=== PATIENT | male | born 1960 | race Caucasian/White ===

== ENCOUNTER → 2019-09-19 | Day surgery (SDC) | payer BC ==
[~2019-09-19] MED LIST: Lactated Ringers 1,000 ML IV SCH; Propofol 200 MG/20 ML SDV IV ONE
--- NOTE | 2019-09-19 10:27 | OR ---
DATE OF OPERATION: 09/19/2019 PREOPERATIVE DIAGNOSIS: FOLLOWUP POLYPS. POSTOPERATIVE DIAGNOSIS: FOLLOWUP POLYPS. SURGEON: Yared Beckett MD PROCEDURE: DIAGNOSTIC COLONOSCOPY WITH FORCEPS POLYP REMOVAL X1. ANESTHESIA: MAC. COMPLICATIONS: None. SPECIMEN: Small sessile polyp, proximal sigmoid colon. FINDINGS: 1. Full-length colonoscopy. 2. Sessile polyp 3 mm, proximal sigmoid colon. RECOMMENDATIONS: Followup colonoscopy in 5 years. INDICATIONS: The patient has a prior history of tubular adenoma removal, quite large. He is overdue for a followup scope for recheck. DESCRIPTION OF PROCEDURE: The patient was prepped and draped, placed in the left lateral decubitus position. A lubricated Olympus colonoscope was inserted and with ease advanced to the cecum. Direct visualization of the ileocecal valve and appendiceal orifice was accomplished. The bowel prep was adequate. What stool was present was easily suctioned. Upon withdrawal, cecum, ascending and transverse colon were benign. In the left colon in the proximal sigmoid area, the patient had 1 small flat sessile polyp, looked inflammatory, removed in its entirety with 2 forceps biopsies. The rest of the sigmoid and rectosigmoid areas were benign. No other polyps, masses, ulceration, or bleeding sites. No vascular abnormalities or signs of colitis. Rectal vault was unremarkable. Retroflexion showed some minimal perianal hemorrhoid disease. Air was suctioned, scope removed without complication. STONEY/JANET /[id number]
== END ==
LOC: CC.SDS 07:16
PROVIDERS: ATTEND Family Medicine
DX: Z12.11 Encounter for screening for malignant neoplasm of colon (principal); D12.5 Benign neoplasm of sigmoid colon; E11.9 Type 2 diabetes mellitus without complications; N40.0 Benign prostatic hyperplasia without lower urinary tract symptoms; N52.9 Male erectile dysfunction, unspecified; K21.9 Gastro-esophageal reflux disease without esophagitis; E78.5 Hyperlipidemia, unspecified; Z86.010 Personal history of colon polyps; Z79.899 Other long term (current) drug therapy
CPT/HCPCS: 45380; J2704; J7120

== ENCOUNTER 2024-10-31 07:21 | Day surgery (SDC) | payer BC ==
[2024-10-31] MEDS: Lactated Ringers 1,000 ML IV SCH (07:53)
[2024-10-31] MEDS ORDERED: Propofol 200 MG/20 ML SDV ONE (08:08)
[2024-10-31] MEDS ORDERED: fentaNYL 50 MCG/ML SDV ONE (08:08)
[2024-10-31] MEDS ORDERED: Midazolam 1 MG/ML 2 ML SDV ONE (08:08)
[2024-10-31] MEDS ORDERED: Ketamine 200 MG/20 ML MDV ONE (08:08)
[2024-10-31] MEDS ORDERED: Flumazenil 0.1 MG/ML 10 ML MDV ONE (08:08)
== END 2024-10-31 09:25 | disposition home or self-care (01) ==
LOC: CC.SDS 07:21
PROVIDERS: ATTEND Family Medicine
DX: Z12.11 Encounter for screening for malignant neoplasm of colon (principal); K57.30 Diverticulosis of large intestine without perforation or abscess without bleeding; Z86.0100 Personal history of colon polyps, unspecified; I10 Essential (primary) hypertension; E11.9 Type 2 diabetes mellitus without complications; E78.5 Hyperlipidemia, unspecified; N40.0 Benign prostatic hyperplasia without lower urinary tract symptoms; K21.9 Gastro-esophageal reflux disease without esophagitis; Z79.84 Long term (current) use of oral hypoglycemic drugs; Z79.85 Long-term (current) use of injectable non-insulin antidiabetic drugs; Z79.899 Other long term (current) drug therapy
CPT/HCPCS: 00811; J2250; J2704; J3010; J3490; J7120